=== PATIENT | male | born 1960 | race Two or more races ===

== ENCOUNTER 2022-05-19 19:08 | Emergency (ER) | payer MEDICAID, OTHER ==
[~2022-05-19] VITALS: Ht 188 cm; Wt 85.7 kg
--- NOTE | 2022-05-19 19:30 | NUR ---
BIBRA 78 FROM LONG TERM C/O RIGHT SIDE CP RAD TO RIGHT ARM. PATIENT IS ALERT, ORIENTED X4. PATIENT DESCRIBED THE PAIN STABBING WHENEVER HE BREATH ONLY SCALE OF 6. ATTACHED TO MONITOR. VITALS CHECKED.
[2022-05-19 21:10] LABS: BASOPHILS % (AUTO) 0.3 % (0.0-2.0); EOSINOPHILS % (AUTO) 0.9 % (0.0-6.0); HEMATOCRIT 40 % (39-51); HEMOGLOBIN 13.3 g/dL (13.5-17.5); LYMPHOCYTES # (AUTO) 0.8 K/uL (0.8-4.8); LYMPHOCYTES % (AUTO) 8.6 % (20.0-44.0); MEAN CORPUSCULAR HGB CONC 34 g/dl (31.0-36.0); MEAN CORPUSCULAR VOLUME 90 fL (80-96); MONOCYTES # (AUTO) 0.4 K/uL (0.1-1.30); MONOCYTES % (AUTO) 4.1 % (2.0-12.0); NEUTROPHILS # (AUTO) 7.9 K/uL (1.8-8.9); NEUTROPHILS % (AUTO) 86.1 % (43.0-81.0); PLATELET COUNT (AUTO) 176 K/uL (150-450); RED BLOOD CELL COUNT(AUTO) 4.38 MIL/uL (4.5-6.0); WHITE BLOOD COUNT (AUTO) 9.1 K/uL (4.3-11.0)
[2022-05-19 21:37] LABS: CALCIUM, SERUM 8.9 mg/dL (8.5-10.1); CARBON DIOXIDE 20 mmol/L (21-32); CHLORIDE 99 mmol/L (98-107); CREATININE 0.8 mg/dL (0.6-1.3); GLUCOSE 133 mg/dL (74-106); POTASSIUM 3.1 mmol/L (3.5-5.1); SODIUM SERUM 133 mmol/L (136-145); UREA NITROGEN, BLOOD 6 mg/dL (7-18)
[2022-05-19] MEDS ORDERED: IV NS 0.9% 250 ML IV ONE (23:40)
[2022-05-19] MEDS ORDERED: CT SWABBABLE VALVE TRANS SET 1 EA INFUS.SET MC ONE (23:40)
[2022-05-19] MEDS ORDERED: IOHEXOL-350 100 ML VIAL IV ONE (23:40)
--- NOTE | 2022-05-19 23:40 | NUR ---
PT WHEELED TO CT DEPT
--- NOTE | 2022-05-19 23:43 | NUR ---
IV CANNULA G20 INSERTED ON LEFT FA.
--- NOTE | 2022-05-20 | NUR ---
PT CAME BACK FROM CT
[2022-05-20 01:45] VITALS: BP 124/71
--- NOTE | 2022-05-20 01:45 | NUR ---
IV CANNULA REMOVED
--- NOTE | 2022-05-20 01:45 | NUR ---
Patient discharged to home in stable condition. Written and verbal after care instructions given. Patient verbalizes understanding of instruction.
== END 2022-05-20 01:46 | disposition home or self-care (01) ==
LOC: ER 19:10
DX: R07.89 Other chest pain (principal)
CPT/HCPCS: 99285; 71275; 71045; 93005 ×2; 85025; 80048; 85378; 36415; 84484 ×2; J7050; Q9967